=== PATIENT | female | born 1970 | race African-American/Black ===

== ENCOUNTER 2017-02-18 10:07 | Emergency (ER) | payer OTHER ==
[~2017-02-18] VITALS: Ht 165.1 cm; Wt 133.8 kg
[~2017-02-18 10:07] MED LIST: ACETAMINOPHEN500 M3 ORAL; AZITHROMYCIN250 MG ORAL; CIPROFLOXACIN500 M2 ORAL; GUAIFENESIN AC473 ML ORAL; IBUPROFEN600 MG ORAL; MACROBID100 MG ORAL; NORCO 5-325 TA1 EACH ORAL; PENICILLIN V P500 MG PO; PHENAZOPYRIDIN200 MG ORAL; PHENERGAN/CODE120 ML ORAL; PHENERGAN6.25 MG/5 ORAL; PSEUDOEPHEDRINE30 MG PO; VIBRAMYCIN100 MG ORAL; ZITHROMAX250 MG ORAL; ZOFRAN ODT4 MG ORAL
[2017-02-18] MEDS ORDERED: NKM (10:20)
--- NOTE | 2017-02-18 10:25 | Emergency Room Report ---
History of Present Illness General Chief Complaint: Chest Pain Source: Patient Present Illness HPI Patient is a 46-year-old female presented after increased pleuritic chest pain. Patient gradual onset of symptoms since yesterday. Patient reports smoking cigars. She denies any fever she stated that she had had pain worse with deep breath. This had somewhat worsened with supine position and was improved leaning forward. The patient reported having some prior history of inhaler use but denied a history of asthma. She reported having intermittent cough which was nonproductive Allergies: Coded Allergies: SULFA (SULFONAMIDE ANTIBIOTICS) (Verified Allergy, Intermediate, EYE SWELLED AFTER USING SULFA BASED EYE DROPS, 03/24/13) Patient History Past Medical History: see triage record Last Menstrual Period: 01/30/17 Now: No Reviewed Nursing Documentation: PMH: Agreed, PSxH: Agreed Nursing Documentation-PMH Past Medical History: No Stated History Review of Systems All Other Systems: negative except mentioned in HPI Physical Exam Vital Signs Date Time Temp Pulse Resp B/P Pulse Ox O2 Delivery O2 Flow Rate FiO2 02/18/17 10:17 98.6 73 15 124/62 100 Room Air Sp02 EP Interpretation: reviewed, normal General Appearance: normal inspection, well appearing, no apparent distress, alert, GCS 15, obese Head: atraumatic ENT: normal ENT inspection, hearing grossly normal, normal voice Neck: normal inspection, full range of motion, supple, no bony tend Respiratory: normal inspection, lungs clear, normal breath sounds, no respiratory distress, no retraction, no wheezing Cardiovascular #1: regular rate, rhythm, edema - trace bilateral leg swelling Gastrointestinal: normal inspection, normal bowel sounds, non tender, soft, no guarding, no hernia Genitourinary: no CVA tenderness Musculoskeletal: normal inspection, back normal, normal range of motion Neurologic: normal inspection, alert, oriented x3, responsive, wire twister III-XII nml as tested, speech normal Psychiatric: normal inspection, judgement/insight normal, mood/affect normal Skin: normal inspection, normal color, no rash Medical Decision Making Diagnostic Impression: Primary Impression: Chest pain ER Course Patient presented for chest pain.Differential diagnosis included but was not limited to acute coronary syndrome, pulmonary embolism, pneumonia, aortic dissection, shingles, pneumothorax, aortic dissection, esophageal rupture, pericarditis. Because of complexity of patient's case laboratory testing and imaging studies were ordered. EKG interpreted by me showed sinus bradycardia cardiac rate of [address] changes with trace elevation consistent with pericarditis. Patient was discussed with Dr. Kent from [facility] who agreed accept patient in transfer Labs Test 02/18/17 10:24 02/18/17 11:05 White Blood Count 5.8 K/UL (4.8-10.8) Red Blood Count 4.82 M/UL (4.20-5.40) Hemoglobin 13.9 G/DL (12.0-16.0) Hematocrit 43.7 % (37.0-47.0) Mean Corpuscular Volume 91 FL (80-99) Mean Corpuscular Hemoglobin 28.9 PG (27.0-31.0) Mean Corpuscular Hemoglobin Concent 31.9 G/DL (32.0-36.0) Red Cell Distribution Width 12.8 % (11.6-14.8) Platelet Count 244 K/UL (150-450) Mean Platelet Volume 6.6 FL (6.5-10.1) Neutrophils (%) (Auto) 41.7 % (45.0-75.0) Lymphocytes (%) (Auto) 46.6 % (20.0-45.0) Monocytes (%) (Auto) 7.9 % (1.0-10.0) Eosinophils (%) (Auto) 2.6 % (0.0-3.0) Basophils (%) (Auto) 1.2 % (0.0-2.0) D-Dimer 286 ng/mL (<500) Sodium Level 139 mEQ/L (135-145) Potassium Level 4.5 mEQ/L (3.4-4.9) Chloride Level 100 mEQ/L (98-107) Carbon Dioxide Level 25 mEQ/L (20-30) Anion Gap 14 (5-15) Blood Urea Nitrogen 13 mg/dL (7-23) Creatinine 1.1 mg/dL (0.5-0.9) Estimat Glomerular Filtration Rate > 60 mL/min (>60) Glucose Level 100 mg/dL (74-106) Calcium Level 9.0 mg/dL (8.6-10.2) Total Bilirubin 0.3 mg/dL (0.0-1.2) Aspartate Amino Transf (AST/SGOT) 17 U/L (5-40) Alanine Aminotransferase (ALT/SGPT) 19 U/L (3-33) Alkaline Phosphatase 58 U/L (35-104) Total Creatine Kinase 195 U/L (26-140) Troponin I < 0.30 ng/mL (<=0.30) Total Protein 6.3 g/dL (6.6-8.7) Albumin 3.8 g/dL (3.5-5.2) Globulin 2.5 g/dL Albumin/Globulin Ratio 1.5 (1.0-2.7) EKG Diagnostic Results Rate: bradycardiac - 46 Rhythm: NSR ST Segments: other - slight st elevation concave up without reciprocal changes Last Vital Signs Date Time Temp Pulse Resp B/P Pulse Ox O2 Delivery O2 Flow Rate FiO2 02/18/17 10:17 98.6 73 15 124/62 100 Room Air Status: unchanged Disposition: [facility] Condition: Serious Oj Camargo February 18, 2017 10:25
[2017-02-18] MEDS ORDERED: Aspirin Baby 81mg ORAL ONE (10:30)
[2017-02-18 10:46] VITALS: BP 110/54
[2017-02-18 10:55] LABS: BASOPHILS % (AUTO) 1.2 % (0.0-2.0); EOSINOPHILS % (AUTO) 2.6 % (0.0-3.0); LYMPHOCYTES % (AUTO) 46.6 % (20.0-45.0); MEAN CORPUSCULAR HEMOGLOBIN 28.9 PG (27.0-31.0); MEAN CORPUSCULAR HGB CONC 31.9 G/DL (32.0-36.0); MEAN CORPUSCULAR VOLUME 91 FL (80-99); MEAN PLATELET VOLUME 6.6 FL (6.5-10.1); MONOCYTES % (AUTO) 7.9 % (1.0-10.0); NEUTROPHILS % (AUTO) 41.7 % (45.0-75.0); PLATELET COUNT 244 K/UL (150-450); RED BLOOD COUNT 4.82 M/UL (4.20-5.40); RED CELL DISTRIBUTION WIDTH 12.8 % (11.6-14.8); WHITE BLOOD COUNT 5.8 K/UL (4.8-10.8)
[2017-02-18 11:14] LABS: ALANINE AMINOTRANSFERASE 19 U/L (3-33); ALBUMIN/GLOBULIN RATIO 1.5 (1.0-2.7); ANION GAP 14 (5-15); ASPARTATE AMINO TRANSFERASE 17 U/L (5-40); CARBON DIOXIDE 25 mEQ/L (20-30); CHLORIDE 100 mEQ/L (98-107); CREATININE 1.1 mg/dL (0.5-0.9); GLOMERULAR FILTRATION RATE > 60 mL/min (>60); HEMOLYSIS 3; POTASSIUM 4.5 mEQ/L (3.4-4.9); SODIUM 139 mEQ/L (135-145); TOTAL PROTEIN 6.3 g/dL (6.6-8.7); TROPONIN I < 0.30 ng/mL (<=0.30)
[2017-02-18] MEDS ORDERED: DuoNeb 0.5-3(2.5)mg/3ml neb HHN ONE (11:15)
[2017-02-18 11:24] LABS: CKMB 1.5 ng/mL (< 3.8)
--- NOTE | 2017-02-18 12:08 | Diagnostic Imaging Report ---
Indication: Dyspnea Comparison: None A single view chest radiograph was obtained. Findings: Cardiomediastinal appearance is within normal limits for age. Pulmonary vascularity is appropriate. The diaphragmatic contour is smooth and costophrenic angles are sharp. No pleural effusions are identified. The bones are unremarkable. Impression: No acute findings
[2017-02-18] MEDS ORDERED: Morphine Sulfate 4mg/ml Inj IVP ONE (12:30)
[2017-02-18 12:57] VITALS: BP 128/83
[2017-02-18 15:36] VITALS: BP 126/65
[2017-02-18 16:37] VITALS: BP 126/65
--- NOTE | 2017-02-19 17:15 | Cardiology Report ---
APPROVED REPORT EKG Measurement Heart [id number] Sinus bradycardia Otherwise normal ECG
== END 2017-02-18 16:39 | disposition short-term general hospital (02) ==
LOC: EMR 10:25
DX: R07.9 Chest pain, unspecified (principal); R05 Cough; Z88.2 Allergy status to sulfonamides; R00.1 Bradycardia, unspecified
CPT/HCPCS: 36415; 71010; 80053; 80300; 81025; 82550; 82553; 83880; 84484; 85025; 85379; 93005; 94640; 96374; 99285; J2270; J7620

== ENCOUNTER 2017-07-04 05:31 | Emergency (ER) | payer OTHER ==
[~2017-07-04] VITALS: Ht 165.1 cm; Wt 140.2 kg
[~2017-07-04 05:31] MED LIST changes: +NKM
--- NOTE | 2017-07-04 05:54 | Emergency Room Report ---
History of Present Illness General Chief Complaint: Abdominal Pain Source: Patient Present Illness HPI Is a 46-year-old female with no significant past medical history. She presents with chief complaint abdominal pain. Pain is diffuse in nature. Sharp in nature. 06/22. Has multiple episode vomiting but no diarrhea. No fever or chills. Nothing made it better. Eating it worse. Allergies: Coded Allergies: SULFA (SULFONAMIDE ANTIBIOTICS) (Verified Allergy, Intermediate, EYE SWELLED AFTER USING SULFA BASED EYE DROPS, 03/24/13) Patient History Past Medical History: see triage record, old chart reviewed Past Surgical History: kari Pertinent Family History: none Social History: Denies: smoking Last Menstrual Period: Jun Now: No Immunizations: other Reviewed Nursing Documentation: PMH: Agreed, PSxH: Agreed Review of Systems Eye: Denies: eye pain, blurred vision ENT: Denies: ear pain, nose congestion, throat swelling Respiratory: Denies: cough, shortness of breath Cardiovascular: Denies: chest pain, palpitations Gastrointestinal: Reports: abdominal pain, nausea, vomiting, Denies: diarrhea Musculoskeletal: Denies: back pain, joint pain Skin: Denies: rash Neurological: Denies: headache, numbness Endocrine: Denies: increased thirst, increased urine Hematologic/Lymphatic: Denies: easy bruising All Other Systems: negative except mentioned in HPI Physical Exam Vital Signs Date Time Temp Pulse Resp B/P (MAP) Pulse Ox O2 Delivery O2 Flow Rate FiO2 07/04/17 05:34 98.1 60 16 109/60 98 Room Air vitals normal Sp02 EP Interpretation: reviewed, normal General Appearance: well appearing, no apparent distress, alert, obese Head: normocephalic, atraumatic Eyes: bilateral eye PERRL, bilateral eye EOMI ENT: hearing grossly normal, normal pharynx Neck: full range of motion, supple, no meningismus Respiratory: chest non-tender, lungs clear, normal breath sounds Cardiovascular #1: regular rate, rhythm, no murmur Gastrointestinal: normal bowel sounds, no mass, no organomegaly, no bruit, non- distended, tenderness - Diffuse Musculoskeletal: back normal, gait/station normal, normal range of motion Psychiatric: mood/affect normal Skin: warm/dry Medical Decision Making Diagnostic Impression: Primary Impression: Abdominal pain Qualified Codes: R10.84 - Generalized abdominal pain ER Course Patient presents with abdominal pain. Differential include acute gastroenteritis, obstruction, retained gallstone to name a few. Labs and CT scan ordered. I will sign this patient out to Dr. Parks for final disposition. Last Vital Signs Date Time Temp Pulse Resp B/P (MAP) Pulse Ox O2 Delivery O2 Flow Rate FiO2 07/04/17 05:34 98.1 60 16 109/60 98 Room Air Status: improved Condition: Stable Referrals: [employer] [facility],REFERRIN (PCP) TRUDY MOSHER M.D. Jul 04, 2017 05:54
[2017-07-04] MEDS ORDERED: Ketorolac 30mg Inj IV ONE (06:00)
[2017-07-04 06:41] VITALS: BP 108/50
[2017-07-04 06:45] LABS: APPEARANCE,URINE SLIGHTLY CLOUDY; KETONES,URINE 1+ (NEGATIVE); LEUKOCYTE ESTERASE ,URINE NEGATIVE (NEGATIVE); NITRITE,URINE NEGATIVE (NEGATIVE); PH,URINE 6.5 (4.5-8.0); PROTEIN,URINE 1+ (NEGATIVE); UROBILINOGEN,URINE 1 MG/DL (0.0-1.0)
[2017-07-04 06:53] LABS: EOSINOPHILS % (AUTO) 1.5 % (0.0-3.0); LYMPHOCYTES % (AUTO) 37.8 % (20.0-45.0); MEAN CORPUSCULAR HEMOGLOBIN 29.8 PG (27.0-31.0); MEAN CORPUSCULAR VOLUME 90 FL (80-99); MEAN PLATELET VOLUME 6.3 FL (6.5-10.1); MONOCYTES % (AUTO) 8.3 % (1.0-10.0); NEUTROPHILS % (AUTO) 50.4 % (45.0-75.0); PLATELET COUNT 268 K/UL (150-450); RED BLOOD COUNT 4.74 M/UL (4.20-5.40); RED CELL DISTRIBUTION WIDTH 12.2 % (11.6-14.8); WHITE BLOOD COUNT 6.2 K/UL (4.8-10.8)
[2017-07-04 06:54] LABS: BACTERIA,URINE FEW /HPF; SQUAMOUS EPITHELIAL CELL,UR MANY /LPF (NONE/OCC); WBC,URINE 0-2 /HPF (0 - 2)
[2017-07-04 07:03] LABS: ALANINE AMINOTRANSFERASE 19 U/L (3-33); ALBUMIN/GLOBULIN RATIO 1.1 (1.0-2.7); ANION GAP 11 (5-15); ASPARTATE AMINO TRANSFERASE 17 U/L (5-40); CALCIUM 8.6 mg/dL (8.6-10.2); CARBON DIOXIDE 27 mEQ/L (20-30); CHLORIDE 100 mEQ/L (98-107); CREATININE 0.9 mg/dL (0.5-0.9); GLOMERULAR FILTRATION RATE > 60 mL/min (>60); HEMOLYSIS 19; LIPASE 33 U/L (< 60); POTASSIUM 3.8 mEQ/L (3.4-4.9); SODIUM 138 mEQ/L (135-145)
[2017-07-04 07:10] VITALS: BP 100/50
[2017-07-04] MEDS ORDERED: PRILOSEC OTC20 MG ORAL (07:59)
[2017-07-04] MEDS ORDERED: HYDROCODON-ACE1 EA15 ORAL (08:02)
[2017-07-04 08:20] VITALS: BP 95/57
--- NOTE | 2017-07-04 08:58 | Diagnostic Imaging Report ---
Indication: Abdominal pain Technique: Spiral acquisitions obtained through the abdomen and pelvis. No oral contrast utilized, per emergency room physician request No IV contrast utilized, per referring physician request.. Multiplanar reconstructions were generated. Total dose length product 1050 mGycm. CTDIvol(s) 19 mGy. Dose reduction achieved using automated exposure control Comparison: None Findings: The appendix is normal. No small bowel distention. No free or loculated intraperitoneal air or fluid. Distal esophagus, are unremarkable. There is equivocal mild wall thickening of the distal duodenum. There is mild diastasis of the rectus abdominis tendon. Lack IV contrast limits assessment of the solid organs. Calcifications are seen within the liver. The gallbladder is not demonstrated, likely surgically absent. The bile ducts are unremarkable. The pancreas, spleen, adrenals, kidneys are unremarkable. No retroperitoneal or mesenteric mass or adenopathy. No pelvic mass or adenopathy. There is a 3.1 cm cyst in the left ovary. The included lung bases are clear except for some posterior dependent atelectatic changes. The bones are unremarkable except for mild degenerative spondylosis changes. Impression: Mild duodenal wall thickening. This could indicate duodenitis or peptic also disease. Correlate with clinical findings 3.1 cm left ovarian cyst. Probably a functional cyst. Recommend sonography for better characterization Evidence of prior cholecystectomy Calcification with the liver, likely dystrophic, may indicate prior inflammation Incidental finding of degenerative spondylosis This agrees with the preliminary interpretation provided overnight by [facility]. The CT scanner at [facility] is accredited by the [employer] and the scans are performed using protocols designed to limit radiation exposure to as low as reasonably achievable to attain images of sufficient resolution adequate for diagnostic evaluation.
== END 2017-07-04 08:20 | disposition home or self-care (01) ==
LOC: EMR 05:49
DX: R10.9 Unspecified abdominal pain (principal); R11.2 Nausea with vomiting, unspecified; Z88.2 Allergy status to sulfonamides; N83.202 Unspecified ovarian cyst, left side; Z90.49 Acquired absence of other specified parts of digestive tract
CPT/HCPCS: 36415; 74176; 80053; 81003; 81025; 83690; 85025; 96361; 96374; 96375; 99284; J1885; J2405

== ENCOUNTER 2017-09-29 12:16 | Emergency (ER) | payer MEDICAID, OTHER ==
[~2017-09-29] VITALS: Ht 165.1 cm; Wt 140.6 kg
[~2017-09-29 12:16] MED LIST changes: +HYDROCODON-ACE1 EA15 ORAL; +PRILOSEC OTC20 MG ORAL
[2017-09-29 12:27] VITALS: BP 106/69
--- NOTE | 2017-09-29 13:48 | Emergency Room Report ---
History of Present Illness General Chief Complaint: Sore Throat Source: Patient Present Illness HPI 46 YO female presents to the emergency department complaining of nonproductive cough x3 days with 10/10 in severity sore throat with associated nasal congestion and rhinorrhea. Denies fevers reports chills. denies neck pain or stiffness denies headache. Denies CP, Palpitations, LOC, AMS, dizziness, Changes in Vision, Sensation, paresthesias, or a sudden severe headache. Allergies: Coded Allergies: SULFA (SULFONAMIDE ANTIBIOTICS) (Verified Allergy, Intermediate, EYE SWELLED AFTER USING SULFA BASED EYE DROPS, 03/24/13) Patient History Past Medical History: see triage record Past Surgical History: none Pertinent Family History: none Last Menstrual Period: 09/24/17 Reviewed Nursing Documentation: PMH: Agreed, PSxH: Agreed Nursing Documentation-PMH Past Medical History: No History, Except For Review of Systems All Other Systems: negative except mentioned in HPI Physical Exam Vital Signs Date Time Temp Pulse Resp B/P (MAP) Pulse Ox O2 Delivery O2 Flow Rate FiO2 09/29/17 12:27 98.1 80 18 106/69 97 Room Air Sp02 EP Interpretation: reviewed, normal General Appearance: no apparent distress, alert, GCS 15, non-toxic Head: normocephalic, atraumatic Eyes: bilateral eye normal inspection, bilateral eye PERRL ENT: hearing grossly normal, normal pharynx, no angioedema, normal voice, TMs + canals normal, uvula midline, moist mucus membranes, nasal congestion Neck: full range of motion Respiratory: chest non-tender, lungs clear, normal breath sounds, no respiratory distress, no wheezing, speaking full sentences Cardiovascular #1: regular rate, rhythm, no edema Rectal: deferred Musculoskeletal: back normal, gait/station normal, normal range of motion, non- tender Neurologic: alert, oriented x3, responsive, motor strength/tone normal, sensory intact, speech normal Skin: normal color, no rash, warm/dry, well hydrated Lymphatic: no adenopathy Medical Decision Making PA Attestation Dr. pool is my supervising Physician whom patient management has been discussed with. Diagnostic Impression: Primary Impression: Cough in adult patient Additional Impressions: Upper respiratory symptom Sore throat ER Course 46 YO female presents to the emergency department complaining of nonproductive cough x3 days with 10/10 in severity sore throat with associated nasal congestion and rhinorrhea. Denies fevers reports chills. denies neck pain or stiffness denies headache. Denies CP, Palpitations, LOC, AMS, dizziness, Changes in Vision, Sensation, paresthesias, or a sudden severe headache. Ddx considered but are not limited to URI, pneumonia, PE, strep pharyngitis, meningitis. Vital signs: Pt. is afebrile, the remaining VS are WNL H&PE are most consistent with URI- no meningeal signs, oropharynx is not involved, no evidence of bacterial infection at this time. PND, no evidence of strep. ORDERS: none required at this time, the diagnosis is clinical ED INTERVENTIONS: None required at this time. --PT. EDUCATION: Discussed antibiotic resistance with inappropriate prescribing of antibiotics for viral illnesses. Discussed signs and symptoms to indicate viral illness versus bacterial illness. DISCHARGE: At this time pt. is stable for d/c to home. Will provide printed patient care instructions, and any necessary prescriptions. Care plan and follow up instructions have been discussed with the patient prior to discharge. Last Vital Signs Date Time Temp Pulse Resp B/P (MAP) Pulse Ox O2 Delivery O2 Flow Rate FiO2 09/29/17 12:27 98.1 80 18 106/69 97 Room Air Disposition: HOME, SELF-CARE Condition: Stable Scripts Loratadine/Pseudoephedrine (CLARITIN-D 24 HOUR TABLET) 1 Each Tab.er.24h 1 TAB PO DAILY for 7 Days, #7 TAB Prov: Taylor aHrvey.A. 09/29/17 Benzonatate* (TESSALON PERLE*) 100 Mg Capsule 100 MG ORAL THREE TIMES A DAY, #20 PERLE Prov: Taylor Harvey P.A. 09/29/17 Codeine/Promethazine Hcl* (PROMETHAZINE-CODEINE SYRUP*) 118 Ml Syrup 5 ML ORAL Q6H Y for For Cough, #120 ML 0 Refills Prov: Taylor Harvey.A. 09/29/17 Patient Instructions: Upper Respiratory Infection, Adult, [id number] Additional Instructions: Take medications as directed. Follow up with a Primary Care Provider in 3-5 days, even if your symptoms have resolved. --Please review list of primary care clinics, if you do not already have a primary care provider Return sooner to ED if new symptoms occur, or current symptoms become worse. Do not drink alcohol, drive, or operate heavy machinery while taking Cough Syrup as this may cause drowsiness. - Please note that this Emergency Department Report was dictated using [employer] salesperson technology software, occasionally this can lead to erroneous entry secondary to interpretation by the dictation equipment. Taylor Harvey Sep 29, 2017 13:48
[2017-09-29] MEDS ORDERED: CLARITIN-D 241 EACH PO (13:49)
[2017-09-29] MEDS ORDERED: PROMETHAZINE-C118 M1 ORAL (13:49)
[2017-09-29] MEDS ORDERED: TESSALON PERLE100 MG ORAL (13:49)
[2017-09-29 14:02] VITALS: BP 111/75
== END 2017-09-29 14:00 | disposition home or self-care (01) ==
LOC: EMR 13:54
DX: R05 Cough (principal); R07.0 Pain in throat; Z88.2 Allergy status to sulfonamides
CPT/HCPCS: 99284

== ENCOUNTER 2017-11-11 13:42 | Emergency (ER) | payer MEDICAID ==
[~2017-11-11] VITALS: Ht 165.1 cm; Wt 140.6 kg
[~2017-11-11 13:42] MED LIST changes: +CLARITIN-D 241 EACH PO; +PROMETHAZINE-C118 M1 ORAL; +TESSALON PERLE100 MG ORAL
[2017-11-11 13:59] VITALS: BP 144/85
[2017-11-11 14:13] LABS: APPEARANCE,URINE TURBID; BILIRUBIN, URINE NEGATIVE (NEGATIVE); GLUCOSE, URINE (UA) NEGATIVE (NEGATIVE); KETONES,URINE NEGATIVE (NEGATIVE); LEUKOCYTE ESTERASE ,URINE 3+ (NEGATIVE); NITRITE,URINE NEGATIVE (NEGATIVE); PH,URINE 6 (4.5-8.0); PROTEIN,URINE 2+ (NEGATIVE); UROBILINOGEN,URINE 1 MG/DL (0.0-1.0)
[2017-11-11 14:15] LABS: COLOR,URINE YELLOW
[2017-11-11] MEDS ORDERED: Fluconazole 100mg tab ORAL ONE (14:15)
--- NOTE | 2017-11-11 14:42 | Emergency Room Report ---
History of Present Illness General Chief Complaint: Female Urogenital Problems Present Illness HPI 46 YO Female presents to the ED c/o frequency, urgency, and itching/dysuria 4/ 10 in severity x 1 day. Denies nausea, vomiting, fevers, chills, abdominal pain , vaginal discharge, swollen tender lymph nodes, joint pain, vaginal lesions, or history of STI. Denies hematuria or low back pain. Denies CP, Palpitations, LOC, AMS, dizziness, Changes in Vision, Sensation, paresthesias, or a sudden severe headache. Allergies: Coded Allergies: SULFA (SULFONAMIDE ANTIBIOTICS) (Verified Allergy, Intermediate, EYE SWELLED AFTER USING SULFA BASED EYE DROPS, 03/24/13) Patient History Past Medical History: see triage record Past Surgical History: none Pertinent Family History: none Reviewed Nursing Documentation: PMH: Agreed, PSxH: Agreed Review of Systems All Other Systems: negative except mentioned in HPI Physical Exam Vital Signs Date Time Temp Pulse Resp B/P (MAP) Pulse Ox O2 Delivery O2 Flow Rate FiO2 11/11/17 13:45 98.1 82 20 148/89 99 Room Air Sp02 EP Interpretation: reviewed, normal General Appearance: no apparent distress, alert, GCS 15, non-toxic Head: normocephalic, atraumatic Eyes: bilateral eye normal inspection, bilateral eye PERRL ENT: hearing grossly normal, normal voice Neck: full range of motion Respiratory: chest non-tender, lungs clear, normal breath sounds, speaking full sentences Cardiovascular #1: regular rate, rhythm Gastrointestinal: normal bowel sounds, non tender, soft Rectal: deferred Genitourinary: normal inspection, no CVA tenderness, other - Pelvic declined by Pt. states no d/c or lesions. Musculoskeletal: back normal, gait/station normal, normal range of motion, non- tender Neurologic: alert, oriented x3, responsive, motor strength/tone normal, sensory intact, speech normal, grossly normal Psychiatric: judgement/insight normal Skin: normal color, no rash, warm/dry, well hydrated Medical Decision Making PA Attestation Dr. Camargo is my supervising Physician whom patient management has been discussed with. Diagnostic Impression: Primary Impression: UTI (urinary tract infection) Qualified Codes: N30.01 - Acute cystitis with hematuria Additional Impression: Vaginitis Qualified Codes: N76.0 - Acute vaginitis ER Course 46 YO Female presents to the ED c/o frequency, urgency, and itching/dysuria 4/ 10 in severity x 1 day. Denies nausea, vomiting, fevers, chills, abdominal pain , vaginal discharge, swollen tender lymph nodes, joint pain, vaginal lesions, or history of STI. Denies hematuria or low back pain. Denies CP, Palpitations, LOC, AMS, dizziness, Changes in Vision, Sensation, paresthesias, or a sudden severe headache. Ddx considered but are not limited to UTi , Pyelo, STI, Stone, Cystitis Vital signs: are WNL, pt. is afebrile H&PE are most consistent with UTI ORDERS: - UA labs are attached --Positive for UTI- moderate bacteria TNTC WBC's. ED INTERVENTIONS: -Diflucan PO DISCHARGE: At this time pt. is stable for d/c to home. Will provide printed patient care instructions, and any necessary prescriptions. Care plan and follow up instructions have been discussed with the patient prior to discharge. Labs Test 11/11/17 13:55 Urine Color Yellow Urine Appearance Turbid Urine pH 6 (4.5-8.0) Urine Specific [place] 1.020 (1.005-1.035) Urine Protein 2+ (NEGATIVE) Urine Glucose (UA) Negative (NEGATIVE) Urine Ketones Negative (NEGATIVE) Urine Occult Blood 5+ (NEGATIVE) Urine Nitrite Negative (NEGATIVE) Urine Bilirubin Negative (NEGATIVE) Urine Urobilinogen 1 MG/DL (0.0-1.0) Urine Leukocyte Esterase 3+ (NEGATIVE) Urine RBC 60-80 /HPF (0 - 2) Urine WBC Tntc /HPF (0 - 2) Urine Squamous Epithelial Cells Few /LPF (NONE/OCC) Urine Bacteria Moderate /HPF (NONE) Last Vital Signs Date Time Temp Pulse Resp B/P (MAP) Pulse Ox O2 Delivery O2 Flow Rate FiO2 11/11/17 13:59 84 20 144/85 99 Room Air 11/11/17 13:45 98.1 Disposition: HOME, SELF-CARE Condition: Stable Scripts Fluconazole (FLUCONAZOLE) 100 Mg Tablet 100 MG ORAL DAILY, #2 TAB 0 Refills Prov: Taylor Harvey P.A. 11/11/17 Nitrofurantoin Monohyd/M-Cryst* (MACROBID 100 MG*) 100 Mg Capsule 100 MG ORAL EVERY 12 HOURS for 5 Days, #10 CAP Prov: Taylor Harvey 11/11/17 Patient Instructions: Urinary Tract Infection, Vaginitis Additional Instructions: Take medications as directed. Follow up with a Primary Care Provider in 3-5 days, even if your symptoms have resolved. --Please review list of primary care clinics, if you do not already have a primary care provider Return sooner to ED if new symptoms occur, or current symptoms become worse. - Please note that this Emergency Department Report was dictated using [employer] manager technology software, occasionally this can lead to erroneous entry secondary to interpretation by the dictation equipment. Taylor Harvey Nov 11, 2017 14:42
[2017-11-11] MEDS ORDERED: FLUCONAZOLE100 MG ORAL (14:47)
[2017-11-11] MEDS ORDERED: NITROFURANTOIN100 M2 ORAL (14:47)
[2017-11-11 15:00] VITALS: BP 140/82
== END 2017-11-11 15:00 | disposition home or self-care (01) ==
LOC: EMR 14:20
DX: N30.01 Acute cystitis with hematuria (principal); N76.0 Acute vaginitis; Z88.2 Allergy status to sulfonamides
CPT/HCPCS: 81003; 87086; 87181; 99283